=== PATIENT | male | born 1950 | race Caucasian/White ===

== ENCOUNTER 2017-09-13 14:35 | Outpatient (CLI) | payer BC | END 2017-09-13 14:36 | disposition home or self-care (01) | LOC: RAD 14:35 | PROVIDERS: ATTEND Physician Assistant Medical | DX: R07.81 Pleurodynia (principal); I70.0 Atherosclerosis of aorta | CPT/HCPCS: 71046 ==

== ENCOUNTER 2018-04-15 14:44 | Outpatient (CLI) | payer BC ==
--- NOTE | 2018-04-15 15:19 | RAD ---
RADIOGRAPH CHEST 2 VIEWS: HISTORY: 67-year-old male with cough. FINDINGS: There is no air space density, pulmonary edema, pleural effusion, pneumothorax, or cardiomegaly. IMPRESSION: No acute cardiopulmonary findings. jn POS: [facility]
== END 2018-04-15 14:45 | disposition home or self-care (01) ==
LOC: BICRAD 14:44
PROVIDERS: ATTEND Family Medicine
DX: R05 Cough (principal)
CPT/HCPCS: 71046

== ENCOUNTER 2018-05-20 12:50 | Outpatient (CLI) | payer BC ==
--- NOTE | 2018-05-20 15:09 | MRI ---
MRI BRAIN WITH AND WITHOUT IV CONTRAST: Date: 05/20/18 HISTORY: 67-year-old male with multiple sclerosis. Right-sided pain and weakness for the past 3 weeks. FINDINGS: No evidence of infarct, hemorrhage, mass, midline shift, or abnormal extra-axial fluid collections ar e seen. No significant white matter changes are noted on the FLAIR images. No abnormal postcontrast e nhancement is seen. The ventricular size is appropriate and the basilar cisterns are patent. There is mucosal disease in the paranasal sinuses. IMPRESSION: Unremarkable exam. POS: OFF
--- NOTE | 2018-05-20 15:12 | MRI ---
FCervical spine MRI with and without contrast: 05/20/2018 COMPARISON: None HISTORY: Cervical stenosis and multiple sclerosis, right-sided pain and weakness TECHNIQUE: Multiplanar multisequence MR imaging of the cervical spine provided with and without contr ast FINDINGS: There is mild/moderate degenerative change at the atlantoaxial interspace. There is no sign ificant anterolisthesis or retrolisthesis present. Sagittal STIR imaging demonstrates no focal area of osseous marrow edema. C2-3: Mild facet and uncovertebral osteophyte formation noted on the left. No central canal or neural foraminal stenosis. C3-4: Mild left facet and uncovertebral osteophyte formation. No significant central canal or neural foraminal stenosis C4-5: Disc space narrowing and disc desiccation with mild disc bulge and small central disc protrusio n partially effacing the ventral thecal sac and causing mild central canal stenosis. No significant n eural foraminal stenosis on either side. C5-6: There is disc space narrowing and disc desiccation with disc bulge and small central disc protr usion effacing the ventral thecal sac with mild cord flattening and mild central canal stenosis. Bila teral facet and uncovertebral osteophyte formation, left greater than right. Mild left neural foramin al stenosis. No significant right neural foraminal stenosis. C6-7: Bilateral facet and uncovertebral osteophyte formation, left greater than right. Moderate left and mild right neural foraminal stenosis. There is disc space narrowing and disc desiccation. Mild disc bulge present. Mild central canal steno sis. C7-T1: Mild facet and uncovertebral osteophyte formation on the left with mild left neural foraminal stenosis. No significant central canal or right neural foraminal stenosis. No focal area of abnormal signal intensity is identified within the cervical cord. Postcontrast imaging demonstrates no abnormal enhancement involving the imaged osseous structures are the contents of the thecal sac. IMPRESSION: Cervical spine degenerative change as detailed above. No abnormal cord signal.
[2018-05-20] MEDS ORDERED: Gadobenate Dimeglumine 529 MG/1 ML (20ML VIAL) ONE (15:35)
== END 2018-05-20 12:51 | disposition home or self-care (01) ==
LOC: MRI 12:50
PROVIDERS: ATTEND Family Medicine
DX: G35 Multiple sclerosis (principal); M48.02 Spinal stenosis, cervical region; M47.812 Spondylosis without myelopathy or radiculopathy, cervical region
CPT/HCPCS: 70553; 72156; 82565; A9577

== ENCOUNTER 2021-09-21 10:56 | Emergency (ER) | payer BC, MEDICARE ==
[2021-09-21] MEDS ORDERED: Ondansetron PF 4 MG/2 ML Vial ONE (11:25)
[2021-09-21] MEDS ORDERED: Ketorolac Tromethamine 30 MG/ML VIAL ONE (11:25)
[2021-09-21 11:44] LABS: #Lymphocytes 0.9 thou/uL (1.20-3.40); #Monocytes 0.4 thou/uL (0.11-0.59); #Neutrophils 10.2 thou/uL (1.40-6.50); %Basophils 0.1 % (0.0-1.0); %Eosinophils 0.2 % (0.0-10.0); %Lymphocytes 7.8 % (21.0-51.0); %Monocytes 3.5 % (0.0-10.0); %Neutrophils 88.3 % (42.0-75.0); Hemoglobin 15.4 g/dL (14.0-18.0); Mean Corpuscular HGB CONC 35.3 g/dL (32.0-36.0); Mean Corpuscular Hemoglobin 33.4 pg (27.0-31.0); Mean Corpuscular Volume 94.8 fL (78.0-98.0); Platelet Count 177 thou/uL (130-400); RBC Distribution Width 11.6 % (11.5-14.5); Red Blood Cell (RBC) Count 4.59 mill/uL (4.70-6.10); White Blood Cell (WBC) Count 11.5 thou/uL (4.8-10.8)
[2021-09-21 12:05] LABS: ALT (SGPT) 55 U/L (8-55); AST (SGOT) 34 U/L (5-34); Albumin 4.4 g/dL (3.4-4.8); Alkaline Phosphatase 61 U/L (40-110); Anion Gap 13 mmol/L (10-20); BUN (Urea Nitrogen) 29 mg/dL (8.4-25.7); Bilirubin, Total 0.7 mg/dL (0.2-1.2); Calc. Creatinine Clearance 0 mL/min (70-130); Calcium 9.7 mg/dL (7.8-10.44); Carbon Dioxide 24 mmol/L (23-31); Chloride 104 mmol/L (98-107); Estimated GFR 64; Globulin 2.6 g/dL (2.4-3.5); Glucose 148 mg/dL (83-110); Lipase 19 U/L (8-78); Potassium 4.3 mmol/L (3.5-5.1); Sodium 137 mmol/L (136-145)
[2021-09-21 13:09] LABS: Bacteria/HPF None Seen HPF (None Seen); Bilirubin Negative (Negative); Blood, Urine 1+ (Negative); Clarity Clear (Clear); Glucose, Urine (Dipstick) Normal (Negative); Ketone, Urine Negative (Negative); Leukocyte Negative Leu/uL (Negative); Nitrite Negative (Negative); Protein, Urine (Dipstick) Negative (Neg-Trace); Squamous Epithelial None Seen HPF (0-3); Urobilinogen Normal mg/dL (Less than 2); WBC/HPF 0-3 HPF (0-3)
[2021-09-21] MEDS ORDERED: Morphine 4 MG/ML VIAL ONE (14:31)
[2021-09-21] MEDS ORDERED: Iopamidol 370 76% 100 ML VIAL ONE (16:09)
== END 2021-09-21 16:10 | disposition home or self-care (01) ==
LOC: ERS 10:56
DX: N13.2 Hydronephrosis with renal and ureteral calculous obstruction (principal); I25.10 Atherosclerotic heart disease of native coronary artery without angina pectoris
CPT/HCPCS: 74177; 80053; 81003; 81015; 83690; 85025; 96374; 96375; J1885; J2270; J2405; Q9967

== ENCOUNTER 2021-09-22 06:58 | Day surgery (SDC) | payer BC, MEDICARE ==
[2021-09-22] MEDS ORDERED: Ondansetron ODT 8 MG TAB ONE (07:13)
[2021-09-22] MEDS ORDERED: Fentanyl 100 MCG/2 ML VIAL ONE ×2 (08:34→13:42)
[2021-09-22] MEDS ORDERED: Ketorolac Tromethamine 30 MG/ML VIAL ONE (08:35)
[2021-09-22] MEDS ORDERED: Promethazine HCl 25 MG SUPP ONE (08:35)
[2021-09-22 08:58] LABS: #Basophils 0.1 thou/uL (0.0-0.2); #Eosinphils 0.1 thou/uL (0.0-0.7); #Lymphocytes 1.6 thou/uL (1.20-3.40); #Monocytes 0.8 thou/uL (0.11-0.59); #Neutrophils 7.5 thou/uL (1.40-6.50); %Basophils 0.7 % (0.0-1.0); %Eosinophils 0.9 % (0.0-10.0); %Lymphocytes 15.9 % (21.0-51.0); %Monocytes 7.9 % (0.0-10.0); %Neutrophils 74.5 % (42.0-75.0); Hemoglobin 14.5 g/dL (14.0-18.0); Mean Corpuscular HGB CONC 32.9 g/dL (32.0-36.0); Mean Corpuscular Hemoglobin 32.2 pg (27.0-31.0); Mean Corpuscular Volume 97.9 fL (78.0-98.0); Mean Platelet Volume 9.3 fL (7.4-10.4); Platelet Count 162 thou/uL (130-400); RBC Distribution Width 11.6 % (11.5-14.5); Red Blood Cell (RBC) Count 4.49 mill/uL (4.70-6.10)
[2021-09-22 09:14] LABS: Bacteria/HPF None Seen HPF (None Seen); Bilirubin Negative (Negative); Blood, Urine 1+ (Negative); Clarity Clear (Clear); Glucose, Urine (Dipstick) Normal (Negative); Ketone, Urine Negative (Negative); Leukocyte Negative Leu/uL (Negative); Nitrite Negative (Negative); Protein, Urine (Dipstick) Negative (Neg-Trace); RBC/HPF 0-3 HPF (0-3); Specific Gravity, Urine 1.024 (1.002-1.036); Squamous Epithelial None Seen HPF (0-3); Urobilinogen Normal mg/dL (Less than 2); WBC/HPF 0-3 HPF (0-3)
[2021-09-22 09:15] LABS: ALT (SGPT) 43 U/L (8-55); AST (SGOT) 28 U/L (5-34); Albumin 4.2 g/dL (3.4-4.8); Alkaline Phosphatase 61 U/L (40-110); Anion Gap 12 mmol/L (10-20); BUN (Urea Nitrogen) 27 mg/dL (8.4-25.7); Bilirubin, Total 0.7 mg/dL (0.2-1.2); Calc. Creatinine Clearance 0 mL/min (70-130); Calcium 9.5 mg/dL (7.8-10.44); Carbon Dioxide 25 mmol/L (23-31); Chloride 103 mmol/L (98-107); Estimated GFR 53; Globulin 2.3 g/dL (2.4-3.5); Glucose 120 mg/dL (83-110); Lipase 19 U/L (8-78); Potassium 4.7 mmol/L (3.5-5.1); Protein, Total 6.5 g/dL (5.8-8.1); Sodium 135 mmol/L (136-145)
[2021-09-22] MEDS ORDERED: Promethazine HCl 25 MG in Sodium Chloride 0.9% 50 ML IVPB SCH (09:30)
[2021-09-22 11:37] LABS: SARS-CoV-2 NAA Rapid Test Not Detected (NotDetected)
[2021-09-22 11:57] LABS: INR-International Normal Ratio 1.1; PTT 32.9 sec (22.9-36.1); Prothrombin Time 13.9 sec (12.0-14.7)
[2021-09-22] MEDS ORDERED: Boostrix 0.5 ML (Tdap) VIAL ONE (12:15)
[2021-09-22] MEDS ORDERED: diphenhydrAMINE 25 MG CAP ONE (12:15)
[2021-09-22] MEDS ORDERED: diphenhydrAMINE 50 MG/ML VIAL ONE (12:17)
[2021-09-22] MEDS ORDERED: Midazolam HCl 2 mg/2 ml Vial ONE (13:42)
[2021-09-22] MEDS ORDERED: B & O ONE (13:43)
[2021-09-22] MEDS ORDERED: Iopamidol 0 ML ONE (13:43)
[2021-09-22] MEDS ORDERED: Levofloxacin 500 mg/D5W 100 ml Premix Bag ONE (14:00)
[2021-09-22] MEDS ORDERED: PROPOFOL 200 MG/20 ML VIAL ONE (14:33)
[2021-09-22] MEDS ORDERED: Lidocaine 1% PF 5 ML VIAL ONE (14:33)
[2021-09-22] MEDS ORDERED: ePHEDrine 50 MG/ML VIAL ONE (14:33)
[2021-09-22] MEDS ORDERED: Oxybutynin 5 MG TAB ONE (16:21)
[2021-09-22] MEDS ORDERED: Phenazopyridine HCl 100 MG TAB ONE ×2 (16:21)
[2021-09-22] MEDS ORDERED: Meperidine HCl/PF 25 MG/ML VIAL ONE (16:48)
[2021-09-29 18:13] LABS: CA Oxalate Dihydrate 10 % (.); CA Oxalate Monohydrate 90 % (.); Color Brown (.)
== END 2021-09-22 17:44 | disposition home or self-care (01) ==
LOC: ERS 06:58 → SDC 13:36
PROVIDERS: ATTEND Urology
PROC: 0T768DZ Dilation of Right Ureter with Intraluminal Device, Via Natural or Artificial Opening Endoscopic (ICD-10-PCS; principal; 2021-09-22)
PROC: 0TC68ZZ Extirpation of Matter from Right Ureter, Via Natural or Artificial Opening Endoscopic (ICD-10-PCS; principal; 2021-09-22)
PROC: 0TC38ZZ Extirpation of Matter from Right Kidney Pelvis, Via Natural or Artificial Opening Endoscopic (ICD-10-PCS; principal; 2021-09-22)
DX: N13.2 Hydronephrosis with renal and ureteral calculous obstruction (principal); I25.2 Old myocardial infarction; Z79.899 Other long term (current) drug therapy; Z88.2 Allergy status to sulfonamides; Z20.822 Contact with and (suspected) exposure to COVID-19
CPT/HCPCS: 36415; 71045; 74420; 80053; 81003; 82365; 83690; 85025; 85610; 85730; 88300; 90715; 93005; 96374; 96375; C2617; J1200; J1885; J1956; J2175; J2250; J2550; J2704; J3010; J3490; J7620; Q0162; Q9967; U0002

== ENCOUNTER 2021-09-24 05:54 | Emergency (ER) | payer BC, MEDICARE ==
[2021-09-24 07:12] LABS: Bacteria/HPF None Seen HPF (None Seen); Bilirubin Negative (Negative); Blood, Urine 3+ (Negative); Clarity Turbid (Clear); Glucose, Urine (Dipstick) Normal (Negative); Ketone, Urine Negative (Negative); Leukocyte 250 Leu/uL (Negative); Nitrite Negative (Negative); Protein, Urine (Dipstick) 50 mg/dL (Neg-Trace); RBC/HPF Greater than 50 HPF (0-3); Specific Gravity, Urine 1.012 (1.002-1.036); Squamous Epithelial None Seen HPF (0-3); Urobilinogen Normal mg/dL (Less than 2)
[2021-09-24 08:01] LABS: #Eosinphils 0.3 thou/uL (0.0-0.7); #Lymphocytes 1.1 thou/uL (1.20-3.40); #Monocytes 0.7 thou/uL (0.11-0.59); %Basophils 0.4 % (0.0-1.0); %Eosinophils 2.5 % (0.0-10.0); %Lymphocytes 10.1 % (21.0-51.0); %Monocytes 6.6 % (0.0-10.0); %Neutrophils 80.3 % (42.0-75.0); Hemoglobin 13.9 g/dL (14.0-18.0); Mean Corpuscular HGB CONC 33.6 g/dL (32.0-36.0); Mean Corpuscular Hemoglobin 32.8 pg (27.0-31.0); Mean Corpuscular Volume 97.5 fL (78.0-98.0); Mean Platelet Volume 6.1 fL (7.4-10.4); Platelet Count 146 thou/uL (130-400); RBC Distribution Width 11.7 % (11.5-14.5); Red Blood Cell (RBC) Count 4.24 mill/uL (4.70-6.10); White Blood Cell (WBC) Count 11.2 thou/uL (4.8-10.8)
[2021-09-24 08:14] LABS: ALT (SGPT) 26 U/L (8-55); AST (SGOT) 26 U/L (5-34); Albumin 3.7 g/dL (3.4-4.8); Alkaline Phosphatase 54 U/L (40-110); Anion Gap 11 mmol/L (10-20); BUN (Urea Nitrogen) 19 mg/dL (8.4-25.7); Bilirubin, Total 0.8 mg/dL (0.2-1.2); Calc. Creatinine Clearance 0 mL/min (70-130); Calcium 9.2 mg/dL (7.8-10.44); Carbon Dioxide 26 mmol/L (23-31); Chloride 109 mmol/L (98-107); Estimated GFR 69; Globulin 2.3 g/dL (2.4-3.5); Glucose 110 mg/dL (83-110); Potassium 4.5 mmol/L (3.5-5.1); Sodium 141 mmol/L (136-145)
[2021-09-24] MEDS ORDERED: Acetaminophen 500 MG TAB ONE (08:22)
== END 2021-09-24 11:05 | disposition home or self-care (01) ==
LOC: ERS 05:54
DX: S06.0X0A Concussion without loss of consciousness, initial encounter (principal); S80.211A Abrasion, right knee, initial encounter; S50.311A Abrasion of right elbow, initial encounter; J18.9 Pneumonia, unspecified organism; K21.9 Gastro-esophageal reflux disease without esophagitis; I25.2 Old myocardial infarction; K58.9 Irritable bowel syndrome, unspecified; W01.198A Fall on same level from slipping, tripping and stumbling with subsequent striking against other object, initial encounter; Y93.01 Activity, walking, marching and hiking; Y92.003 Bedroom of unspecified non-institutional (private) residence as the place of occurrence of the external cause; Z79.899 Other long term (current) drug therapy
CPT/HCPCS: 36415; 70450; 71045; 72125; 80053; 81001; 85025; 93005

== ENCOUNTER 2021-12-17 13:02 | Outpatient (CLI) | payer BC | END 2021-12-17 13:03 | disposition home or self-care (01) | LOC: BICRAD 13:02 | PROVIDERS: ATTEND Family Medicine | DX: R05.9 Cough, unspecified (principal) | CPT/HCPCS: 71046 ==

== ENCOUNTER 2022-11-27 13:16 | Outpatient (CLI) | payer BC | END 2022-11-27 13:17 | disposition home or self-care (01) | LOC: BICRAD 13:16 | PROVIDERS: ATTEND Family Medicine | DX: R05.9 Cough, unspecified (principal) | CPT/HCPCS: 71046 ==